=== PATIENT | female | born 1950 | race Hispanic/Latino ===

== ENCOUNTER 2019-07-05 10:23 | Outpatient (CLI) | payer OTHER ==
--- NOTE | 2019-07-05 11:28 | ULT ---
BILATERAL CAROTID DUPLEX ULTRASOUND: HISTORY: Hyperlipidemia TECHNIQUE: Grayscale, color-flow and spectral Doppler ultrasound imaging of the extracranial carotid artery syst ems was performed bilaterally. FINDINGS: There are plaques noted bilaterally in the carotid bifurcations and bulbs. The right ICA is markedly tortuous. The peak systolic velocity in the right ICA measures 91 cm/s with an end-diastolic velocity of 17 cm/ s and a systolic ratio of 0.76. The peak systolic velocity in the left ICA measures 83 cm/s with an end-diastolic velocity of 27 cm/s and a systolic ratio of 0.80. Flow in both vertebral arteries remains antegrade. IMPRESSION: No hemodynamically significant stenosis seen in either ICA.
== END 2019-07-05 10:24 | disposition home or self-care (01) ==
LOC: BICULT 10:23
PROVIDERS: ATTEND Family Medicine
DX: E78.49 Other hyperlipidemia (principal)
CPT/HCPCS: 93880

== ENCOUNTER 2021-07-07 08:16 | Outpatient (CLI) | payer MEDICARE | END 2021-07-07 08:17 | disposition home or self-care (01) | LOC: BICMAMMO 08:16 | PROVIDERS: ATTEND Family Medicine | DX: Z12.31 Encounter for screening mammogram for malignant neoplasm of breast (principal); Z13.820 Encounter for screening for osteoporosis; E89.40 Asymptomatic postprocedural ovarian failure | CPT/HCPCS: 77063; 77067; 77080 ==